=== PATIENT | male | born 1950 | race Caucasian/White ===

== ENCOUNTER 2020-08-13 08:47 | Outpatient (CLI) | payer MEDICARE, SELFPAY ==
--- NOTE | 2020-08-13 10:01 | ECG_ITS ---
Measurements Intervals [place] Rate: 75 P: 69 MD: 194 QRS: 17 QRSD: 92 T: 61 QT: 365 QTc: 408 Interpretive Statements SINUS RHYTHM VENTRICULAR PREMATURE COMPLEX DELAYED PRECORDIAL R/S TRANSITION BASELINE ARTIFACT- I, III, AVR, AVL, AVF BORDERLINE ECG Electronically Signed On 08-13-2020 10:22:45 SPRINKLING SYSTEM IRRIGATOR by Sriram Epstein D.O.
[2020-08-13 10:47] LABS: Basophils Absolute Auto 0.1 K/mm3 (0.0-0.1); Eosinophils Absolute Auto 0.2 K/mm3 (0-0.3); Eosinophils Percent Auto 2.2 % (0-4.4); Hematocrit 49.4 % (42.0-52.0); Immature Granulocyte Absolute 0.05 K/mm3 (0.00-0.031); Immature Granulocyte Percent A 0.4 % (0-0.5); Lymphocytes Absolute Auto 3.29 K/mm3 (0.9-3.2); Lymphocytes Percent Auto 29.5 % (18.3-44.2); Mean Corpuscular HGB Conc 32.4 g/dl (32-36); Mean Corpuscular Hemoglobin 29.9 pg (26-34); Mean Corpuscular Volume 92.3 fl (80-100); Mean Platelet Volume 9.9 fl (7.4-10.4); Monocytes Absolute Auto 0.9 K/mm3 (0.1-0.6); Monocytes Percent Auto 8.1 % (2.6-8.5); Neutrophils Absolute Auto 6.6 K/mm3 (1.3-6.7); Neutrophils Percent Auto 58.8 % (45.5-73.1); Platelet Count Result 373 k/mm3 (150-375); Red Blood Count 5.35 M/mm3 (4.6-6.20); Red Cell Distribution Width 13.1 % (11.5-14.5); White Blood Count 11.2 K/mm3 (4.5-10.0)
[2020-08-13 10:49] LABS: Add Urine Microscopic? NO; Appearance Urine Clear (Clear); Bilirubin Urine Negative (Negative); Blood Urine Negative (Negative); Color Urine Yellow (Yellow); Glucose Urine UA Negative (Negative); Ketones Urine Negative (Negative); Leukocyte Esterase Ur Negative LEU/UL (Negative); Nitrate Urine Negative (Negative); Protein Urine Negative (Negative); Specific Grav Ur 1.017 (1.001-1.035); Urobilinogen Urine Negative mg/dL (<2.0)
[2020-08-13 10:56] LABS: INR 1.1; Partial Thromboplastin Time 33.4 SECONDS (22.3-36.8); Prothrombin Time 13.4 Seconds (11.1-14.7)
[2020-08-13 10:58] LABS: Anion Gap 9 mmol/L (8-16); Blood Urea Nitrogen 16 mg/dL (9-20); Calcium 9.2 mg/dL (8.4-10.2); Carbon Dioxide 28 mmol/L (22-30); Chloride 101 mmol/L (98-107); Estimated Glomerular Filt Rate 60; Glucose 128 mg/dL (75-110); Potassium 4.4 mmol/L (3.4-5.0); Sodium 138 mmol/L (137-145)
[2020-08-13 11:00] LABS: Urine Cotinine NEGATIVE
== END 2020-08-13 08:48 | disposition home or self-care (01) ==
PROVIDERS: PCP Family Medicine; Visit Provider Orthopaedic Surgery
DX: M17.11 Unilateral primary osteoarthritis, right knee (principal); Z01.818 Encounter for other preprocedural examination; R94.31 Abnormal electrocardiogram [ECG] [EKG]
CPT/HCPCS: 80048; 80307; 81003; 82040; 83036; 85025; 85610; 85730; 86850; 86900; 86901; 87081; 93005

== ENCOUNTER 2020-08-18 01:08 | Outpatient (CLI) | payer MEDICARE, SELFPAY ==
[2020-08-19 00:05] LABS: SARS-CoV-2 RNA PCR Negative
== END 2020-08-18 01:09 | disposition home or self-care (01) ==
LOC: ANHCOVIDDT 01:08
PROVIDERS: PCP Family Medicine; Visit Provider Orthopaedic Surgery
DX: Z01.818 Encounter for other preprocedural examination (principal); Z20.828 Contact with and (suspected) exposure to other viral communicable diseases
CPT/HCPCS: 87635; C9803; U0003

== ENCOUNTER 2020-11-30 11:23 | Outpatient (CLI) | payer MEDICARE, SELFPAY ==
[2020-11-30 13:10] LABS: Basophils Absolute Auto 0.1 K/mm3 (0.0-0.1); Eosinophils Absolute Auto 0.2 K/mm3 (0-0.3); Eosinophils Percent Auto 1.7 % (0-4.4); Hematocrit 51.6 % (42.0-52.0); Immature Granulocyte Absolute 0.03 K/mm3 (0.00-0.031); Immature Granulocyte Percent A 0.3 % (0-0.5); Lymphocytes Absolute Auto 2.78 K/mm3 (0.9-3.2); Lymphocytes Percent Auto 25.5 % (18.3-44.2); Mean Corpuscular HGB Conc 32.9 g/dl (32-36); Mean Corpuscular Volume 91.2 fl (80-100); Mean Platelet Volume 9.8 fl (7.4-10.4); Monocytes Absolute Auto 0.9 K/mm3 (0.1-0.6); Monocytes Percent Auto 7.9 % (2.6-8.5); Neutrophils Absolute Auto 6.9 K/mm3 (1.3-6.7); Neutrophils Percent Auto 63.6 % (45.5-73.1); Platelet Count Result 376 k/mm3 (150-375); Red Blood Count 5.66 M/mm3 (4.6-6.20); Red Cell Distribution Width 13.2 % (11.5-14.5); White Blood Count 10.9 K/mm3 (4.5-10.0)
[2020-11-30 13:16] LABS: Add Urine Microscopic? YES; Appearance Urine Clear (Clear); Bilirubin Urine Negative (Negative); Blood Urine Negative (Negative); Color Urine Yellow (Yellow); Glucose Urine UA Negative (Negative); Ketones Urine Negative (Negative); Leukocyte Esterase Ur Negative LEU/UL (Negative); Mucus Urine Rare /lpf; Nitrate Urine Negative (Negative); Protein Urine 1+ mg/dL (Negative); RBC Urine 0-2 /hpf (0-2); Specific Grav Ur 1.019 (1.001-1.035); Squamous Epithelial Cell Urine Rare /hpf (Few); Urobilinogen Urine Negative mg/dL (<2.0); WBC Urine 0-3 /hpf
[2020-11-30 13:18] LABS: Prothrombin Time 13.4 Seconds (11.1-14.7)
[2020-11-30 13:20] LABS: Urine Cotinine NEGATIVE
[2020-11-30 13:21] LABS: Albumin Level 4.2 g/dL (3.5-5.1); Anion Gap 7 mmol/L (8-16); Blood Urea Nitrogen 19 mg/dL (9-20); Calcium 9.7 mg/dL (8.4-10.2); Carbon Dioxide 28 mmol/L (22-30); Chloride 101 mmol/L (98-107); Estimated Glomerular Filt Rate 50; Glucose 129 mg/dL (75-110); Potassium 4.6 mmol/L (3.4-5.0); Sodium 136 mmol/L (137-145)
[2020-11-30 13:29] LABS: Hemoglobin A1C 6.3 % (<5.7)
== END 2020-11-30 11:24 | disposition home or self-care (01) ==
LOC: ANHSURGERY 11:29
PROVIDERS: PCP Family Medicine; Visit Provider Orthopaedic Surgery
DX: M17.11 Unilateral primary osteoarthritis, right knee (principal); Z01.818 Encounter for other preprocedural examination
CPT/HCPCS: 80048; 80307; 81001; 82040; 83036; 85025; 85610; 85730; 86850; 86900; 86901; 87081

== ENCOUNTER → 2020-12-01 05:54 | Outpatient (CLI) | payer MEDICARE, SELFPAY ==
[2020-12-01 19:10] LABS: SARS-CoV-2 RNA PCR Negative
== END ==
PROVIDERS: PCP Family Medicine; Visit Provider Orthopaedic Surgery
DX: Z01.812 Encounter for preprocedural laboratory examination (principal); Z20.822 Contact with and (suspected) exposure to COVID-19
CPT/HCPCS: C9803; U0003; U0005

== ENCOUNTER 2020-12-04 00:36 | Day surgery (SDC) | payer MEDICARE, SELFPAY ==
[2020-08-13 09:14] VITALS: BMI 38.7
[2020-08-13 09:16] VITALS: BP 176/97; PULSE 83; RESP 18; TEMP 36.8; O2SAT 95
[2020-11-30 11:48] VITALS: BP 147/92; PULSE 97; RESP 18; TEMP 36.8; O2SAT 99; BMI 38.7
--- NOTE | 2020-12-03 09:40 | WPDANESEPPF ---
Anes - Initial Pre Proc Eval Procedure: Operation Date: 12/04/20 07:30 Proposed Procedures p Right Total Knee Arthroplasty - Moreno Dunham MD Date/Time: 12/03/20 09:40 Surgeon: Moreno Dunham MD Pre Op Diagnosis: right knee DJD Patient Data Age: 70 Gender: M Height: 1.85 m Weight: 133.4 kg Last Vital Signs Temp 36.8 C 11/30/20 11:48 Pulse 97 11/30/20 11:48 Resp 18 11/30/20 11:48 BP 147/92 H 11/30/20 11:48 Pulse Ox 99 11/30/20 11:48 Allergies Allergy/AdvReac Type Severity Reaction Status Date / Time blueberry Allergy BURNING Verified 12/04/20 06:04 gluten Allergy Gastrointestinal Verified 12/04/20 06:04 Upset strawberry Allergy BURNING Verified 12/04/20 06:04 Yeast AdvReac BODY ACHES Verified 12/04/20 06:04 Home Medications Medication Instructions Recorded Confirmed Type chlorhexidine gluconate 4 % 1 applic TOPICAL ONCE #237 ml 07/09/20 12/04/20 Rx topical liquid acetaminophen [Tylenol Extra 1,000 mg PO Q6H PRN 08/13/20 12/04/20 History Strength] alprazolam 0.5 mg PO TID PRN 08/13/20 12/04/20 History cetirizine 10 mg PO DAILY PRN 08/13/20 12/04/20 History cyanocobalamin (vitamin B-12) 1,000 mcg PO DAILY 08/13/20 12/04/20 History [Vitamin B-12] cholecalciferol (vitamin D3) 25 mcg PO DAILY 11/30/20 12/04/20 History [Vitamin D3] omega-3 fatty acids-vitamin E 1 cap PO DAILY 11/30/20 12/04/20 History [Fish Oil] Patient hx anesthesia problems: none Family hx anesthesia problems: none PMFSH Past Medical History Medical History (Updated 12/03/20 @ 09:40 by Davy Demarco DO) Anxiety DJD (degenerative joint disease) of knee GERD (gastroesophageal reflux disease) High cholesterol Tricompartment degenerative joint disease of knee Vision abnormalities Family History Family History Father Family history of arthritis Social History Social History Smoking status: Former smoker Tobacco type: cigars Smoking end date: 04/11/00 Additional smoking assessment comments: 1-2 CIGARS/WEEK Alcohol intake: current Drinks per week: 1 Alcohol use details: DRANK HEAVILY FOR SEVERAL YEARS AFTER SON Substance use: never Living arrangements: with family Additional living arrangements comments: Spiritual care concerns: No Anes - Eval Final PreProcedure Day of Procedure 12/03/20 09:40 Patient weight: obese Heart: regular rate and rhythm Lungs: clear to auscultation and normal air movement Airway: Mallampati scale class II Neurological: alert and oriented Last oral intake: >/= 8 hours ASA classification: III Emergent: no Anesthetic plan: proceed Anesthesia type and monitoring: general LMA and standard monitoring Informed Consent: The patient's anesthetic plan and its attendant risks and benefits were discussed with the patient/family/POA. Questions were solicited and answers provided to the satisfaction of the patient/family/POA.
--- NOTE | 2020-12-03 09:41 | WPDANESPNB ---
Anes - Peripheral Nerve Block Date/Time: 12/03/20 09:41 I have discussed with the patient/family/POA the placement of a peripheral nerve block for post-operative pain management, including associated risks, benefits, complications, and side effects. Alternative methods of post-operative analgesia were detailed. Questions were solicited and answers provided to the satisfaction of the patient/family/POA. Time-Out: A pre-procedural Time-Out was completed immediately before starting the procedure and confirmed: Patient Identification, Site, Procedure, Patient Position and the Availability of Requisite Equipment. Clinical Indications: Acute post-operative pain management requested by the operative surgeon. Nerve Block Insertion Note Anes-nerve block: adductor canal right Patient position: supine Skin prep: chlorhexidine Needle: 22 gauge, stimulating, insulated echogenic needle. Needle length: 80 mm Technique: ultrasound Injectate: bupivacaine 0.5% with epi 5 mcg/ml (30cc - no epi) Observations: tolerated well Complications: none Procedure start time:: 729 Procedure end time:: 732
[2020-12-04] VITALS (17 sets, daily range): BP systolic 116–161; BP diastolic 71–95; PULSE 65–99; RESP 10–20; TEMP 36.1–36.8; O2SAT 91–100; BMI 38.0
--- NOTE | ~2020-12-04 | XR_ITS ---
XR knee RT 2V DATE: 12/04/2020 10:34 INDICATION: Right total knee arthroplasty TECHNIQUE: Postoperative AP and crosstable lateral views COMPARISON: November 30, 2020 right knee FINDINGS: Status post right knee arthroplasty without patellar resurfacing. There is expected postoperative subcutaneous and intra-articular gas. There are peyman along the ant erior aspect of the knee. No fracture, dislocation, periosteal reaction or bone destruction. IMPRESSION: Right knee arthroplasty Reviewed, dictated and finalized at location A. MICS ENGINEER IMPRESSION: Right knee arthroplasty
[2020-12-04] MEDS: LACTATED RINGERS 1,000 ML 30 ML IV CONT ×2 (06:30→10:02)
[2020-12-04] MEDS: TRANEXAMIC ACID 1,000MG/ISO100 1,000 MG/100 ML BAG 200 MG IVPB (06:31)
[2020-12-04] MEDS: ACETAMINOPHEN 500 MG TABLET 1000 MG PO (06:32)
--- NOTE | 2020-12-04 07:12 | SUR.PREOP ---
0605; UPON ARRIVAL INTO PREOP. PT VISIBLY WINDED FROM WALK TO PREOP. C/O HEARTBURN. PT BELCHING. STATES FEELS BETTER. SAO2 91% 0630; PT STATES RELIEF OF HEARTBURN, NO LONGER SOB 0655; DR TORRE NOTIFIED OF HEARTBURN, AND LOW SAO2.
[2020-12-04] MEDS: FAMOTIDINE 20 MG/2 ML VIAL IV PUSH (07:17)
--- NOTE | 2020-12-04 07:22 | WPDHPUPDATE1 ---
History and Physical Update Update Date/Time: 12/04/20 07:22 History and Physical has been reviewed, including an updated exam of the patient. There are NO changes in the patient's condition. Risks, benefits, and alternatives have been discussed and questions answered. Patient agrees to proceed with procedure.
[2020-12-04] MEDS: ceFAZolin 3 GM/D5W 100 ML 100 ML IVPB (07:38)
[2020-12-04] MEDS: GENTAMICIN BONE CEMENT REFOBACIN 1 EACH TOPICAL (08:36)
[2020-12-04] MEDS: TRANEXAMIC ACID 1,000 MG/10 ML AMPUL 10 MG IV PUSH (09:28)
--- NOTE | 2020-12-04 09:42 | PM.PROC ---
Procedure Note - Detailed Date of procedure: 12/04/20 Pre-op diagnosis: right knee DJD Post-op diagnosis: same Procedure performed: R TKA Description of procedure: THE RIGHT KNEE WAS PREPPED AND DRAPED IN THE STERILE FASHION. A MIDLINE SKIN INCISION WAS MADE. A MEDIAL PARAPATELLAR ARTHROTOMY WAS MADE. THE PATELLA WAS EVERTED. THERE WAS TRICOMPARTMENT DJD. THERE WAS MINIMAL PATELLA DJD. AN INTRAMEDULLARY MAURICE WAS PLACED IN THE FEMUR. A DISTAL FEMORAL CUT WAS MADE IN 5 DEGREES OF VALGUS REMOVING APPROXIMATELY 9 MM OF BONE FROM THE DISTAL FEMUR. THE FEMUR WAS SIZED TO 72.5. A 72.5 FEMORAL CUTTING BLOCK WAS PLACED IN 3 DEGREES OF EXTERNAL ROTATION AND IN ALIGNMENT WITH ELSI'S LINE AND THE TRANSEPICONDYLAR AXIS. ANTERIOR POSTERIOR AND CHAMFER CUTS WERE MADE. THE CUTS WERE EXCELLENT. NEXT AN INTRAMEDULLARY CUTTING GUIDE WAS PLACED IN THE TIBIA. A TRANS TIBIAL CUT WAS MADE ALONG THE LONG AXIS OF THE TIBIA. APPROXIMATELY 10 MM OF BONE WAS REMOVED FROM THE HIGH SIDE OF THE TIBIA. THE TIBIA WAS THEN PLANED TO A SMOOTH SURFACE. POSTERIOR FEMORAL OSTEOPHYTES WERE REMOVED FROM THE FEMORAL CONDYLES. An 83 TIBIAL TRIAL WAS PLACED IN ALIGNMENT WITH THE 1/3 MEDIAL ASPECT OF THE TIBIAL TUBERCLE. THEN A 72.5 FEMORAL TRIAL COMPONENT WAS PLACED. BOTH HAD EXCELLENT FITS. EVENTUALLY A 10 MM POLYETHYLENE TRIAL COMPONENT WAS PLACED. THE KNEE WAS TAKEN THROUGH A RANGE OF MOTION. THE KNEE CAME OUT TO FULL EXTENSION. THERE WAS NO ABNORMAL TILT TO THE PATELLA. THERE WAS GOOD A/P AND VARUS/VALGUS STABILITY. THERE WAS NO EXCESSIVE ROLL BACK WITH FLEXION. THE TRIAL COMPONENTS WERE REMOVED. THEN A 72.5 FEMORAL COMPONENT AND 83 TIBIAL COMPONENT WITH A 10 CR POLYETHYLENE COMPONENT WERE PRESS FIT INTO PLACE. THE IMPLANTS WERE FLUSH WITH THE CUT BONE SURFACES. THE KNEE WAS TAKEN THROUGH A ROM AGAIN AND FOUND TO BE STABLE WITH NO PATELLA TILT NO EXCESSIVE ROLL BACK WITH FLEXION AND GOOD STABILITY WITH COMPLETE AND FULL EXTENSION. THE KNEE WAS IRRIGATED WITH STERILE BETADINE AND WATER FOR ABOUT 3 MINUTES. THE BLEEDERS WERE CAUTERIZED. THE ARTHROTOMY WAS REPAIRED WITH NUMBER 1 VICRYL. THE SUB CUTANEOUS LAYER WITH 2-0 VICRYL AND THE SKIN WITH TERRY. THE WOUND WAS WASHED AND A STERILE DRESSING WAS APPLIED. PATIENT WAS EXTUBATED. Anesthesia: GETA Surgeon: Moreno Dunham MD Estimated blood loss (mL): 100 Complications: No immediate complications Condition: stable Disposition: PACU
[2020-12-04] MEDS: fentaNYL CITRATE INJ (*CRX) 100 MCG/2 ML VIAL 25 MCG IV PUSH ×3 (10:29→11:20)
--- NOTE | 2020-12-04 10:43 | SUR.PHASEI ---
1043 - dr. chen at bedside talking with pt
--- NOTE | 2020-12-04 12:03 | ADMGEN ---
This patient, Dalton De La Torre, was admitted to Medical Room 259-. Patient/family oriented to hospital policies and general routines including ID bracelet, bed and alarms, visiting hours, pain management, procedures, bathroom and other care routines, personal items, smoking policy, room service/diet, and visiting hours. Information on how to activate the Rapid Response Team has been discussed. Patient/Family are encouraged to report perceived risks to care and to ask questions if they do not understand what they are told or what they should do.
[2020-12-04] MEDS: SODIUM CHLORIDE 0.9% IV 1,000 ML 125 ML IV CONT (12:25)
[2020-12-04] MEDS: oxyCODONE HCL (*CRX) 5 MG TAB IR PO ×3 (12:25→21:28)
[2020-12-04] MEDS: OMEGA 3 POLYUNSAT FATTY ACIDS 1 GM CAP PO (14:33)
[2020-12-04] MEDS: CHOLECALCIFEROL 1,000 UNITS TABLET 1000 UNITS PO (14:33)
[2020-12-04] MEDS: ceFAZolin 2 GM/D5W 50 ML 2 GM/50 ML BAG IVPB ×2 (14:59→23:57)
[2020-12-04] MEDS: CELECOXIB 200 MG CAPSULE PO (18:06)
[2020-12-04] MEDS: DOCUSATE SODIUM 100 MG CAPSULE PO (18:06)
[2020-12-04] MEDS: ONDANSETRON INJ 4 MG/2 ML VIAL IV PUSH (20:27)
[2020-12-04] MEDS: FAMOTIDINE 20 MG TABLET PO (21:29)
[2020-12-05] MEDS: ALPRAZolam (*CRX) 0.5 MG TABLET PO
[2020-12-05] MEDS: oxyCODONE HCL (*CRX) 5 MG TAB IR PO ×3 (00:38→08:31)
[2020-12-05 02:00] VITALS: BP 153/70; PULSE 85; RESP 16; TEMP 36.4; O2SAT 95
[2020-12-05 06:00] VITALS: BP 156/80; PULSE 84; RESP 16; TEMP 36.7; O2SAT 99
[2020-12-05] MEDS: ceFAZolin 2 GM/D5W 50 ML 2 GM/50 ML BAG IVPB (06:22)
[2020-12-05 06:54] LABS: Basophils Absolute Auto 0.1 K/mm3 (0.0-0.1); Basophils Percent Auto 0.3 % (0.2-1.2); Eosinophils Percent Auto 0.2 % (0-4.4); Hematocrit 40.6 % (42.0-52.0); Hemoglobin 13.1 g/dL (14.0-18.0); Immature Granulocyte Absolute 0.07 K/mm3 (0.00-0.031); Immature Granulocyte Percent A 0.5 % (0-0.5); Lymphocytes Absolute Auto 2.37 K/mm3 (0.9-3.2); Lymphocytes Percent Auto 16.4 % (18.3-44.2); Mean Corpuscular HGB Conc 32.3 g/dl (32-36); Mean Corpuscular Hemoglobin 30.3 pg (26-34); Mean Corpuscular Volume 93.8 fl (80-100); Mean Platelet Volume 10.1 fl (7.4-10.4); Monocytes Absolute Auto 1.8 K/mm3 (0.1-0.6); Monocytes Percent Auto 12.4 % (2.6-8.5); Neutrophils Absolute Auto 10.1 K/mm3 (1.3-6.7); Neutrophils Percent Auto 70.2 % (45.5-73.1); Platelet Count Result 327 k/mm3 (150-375); Red Blood Count 4.33 M/mm3 (4.6-6.20); Red Cell Distribution Width 13.2 % (11.5-14.5); White Blood Count 14.5 K/mm3 (4.5-10.0)
[2020-12-05 07:12] LABS: Anion Gap 4 mmol/L (8-16); Blood Urea Nitrogen 14 mg/dL (9-20); Calcium 8.1 mg/dL (8.4-10.2); Carbon Dioxide 29 mmol/L (22-30); Chloride 101 mmol/L (98-107); Estimated CRCL calculation 63 ml/min; Estimated Glomerular Filt Rate 50; Glucose 142 mg/dL (75-110); Potassium 4.5 mmol/L (3.4-5.0); Sodium 134 mmol/L (137-145)
--- NOTE | 2020-12-05 08:02 | P.PNAN_ITS ---
Anes - Prog Note Post-Op Date/Time: 12/05/20 08:02 Cardiovascular status: normal Respiratory status: normal Airway patency: baseline Mental status: baseline Post-Op hydration status: normal Vital Signs: Last Vital Signs Temp 36.5 C 12/04/20 22:00 Pulse 80 12/04/20 22:00 Resp 18 12/04/20 22:00 BP 161/75 H 12/04/20 22:00 Pulse Ox 98 12/04/20 22:00 Pain Score (VAS): 3 I/O: Intake & Output 12/04/20 12/05/20 12/05/20 23:59 07:59 15:59 Intake Total 894 100 Output Total 400 Balance 494 100 Laboratory Tests 12/05/20 05:17 12/05/20 05:17 12/05/20 12/05/20 05:17 05:17 WBC 14.5 H RBC 4.33 L Hgb 13.1 L D Hct 40.6 L MCV 93.8 MCH 30.3 MCHC 32.3 RDW 13.2 Plt Count 327 MPV 10.1 Immature Gran % (Auto) 0.5 Neut % (Auto) 70.2 Lymph % (Auto) 16.4 L [place] % (Auto) 12.4 H Eos % (Auto) 0.2 Baso % (Auto) 0.3 Lymph # (Auto) 2.37 [place] # (Auto) 1.8 H Eos # (Auto) 0.0 Baso # (Auto) 0.1 Abs Immat Gran (auto) 0.07 H Absolute Neuts (auto) 10.1 H Absolute Nucleated RBC 0.0 Nucleated RBC % 0.0 Sodium 134 L Potassium 4.5 Chloride 101 Carbon Dioxide 29 Anion Gap 4 L BUN 14 D Creatinine 1.40 H Estim Creat Clear Calc 63 Estimated GFR 50 L Glucose 142 H Calcium 8.1 L Post-procedural complaints: none Patient Feedback: Patient satisfied with anesthetic care.
[2020-12-05] MEDS: CYANOCOBALAMIN 1,000 MCG TABLET 1000 MCG PO (08:31)
[2020-12-05] MEDS: ASPIRIN 325 MG ENTERIC TABLET 650 MG PO (08:31)
[2020-12-05] MEDS: FAMOTIDINE 20 MG TABLET PO (08:32)
[2020-12-05] MEDS: DOCUSATE SODIUM 100 MG CAPSULE PO ×2 (08:32→16:11)
[2020-12-05] MEDS: CELECOXIB 200 MG CAPSULE PO ×2 (08:32→16:11)
[2020-12-05] MEDS: CHOLECALCIFEROL 1,000 UNITS TABLET 1000 UNITS PO (08:32)
[2020-12-05 10:01] VITALS: BP 94/67; PULSE 89; RESP 16; TEMP 36.6; O2SAT 96
[2020-12-05 11:00] VITALS: BP 147/72; PULSE 79; RESP 20; TEMP 36.7; O2SAT 97
[2020-12-05 13:54] VITALS: BP 134/60; PULSE 84; RESP 16; TEMP 36.7; O2SAT 96
[2020-12-05] MEDS: ACETAMINOPHEN 500 MG TABLET 1000 MG PO (14:23)
--- NOTE | 2020-12-05 14:45 | PC.NURSE ---
On 12/05/20, the student, [Kalyani Reyna ], provided care and completed [facility] documentation on this patient. I have reviewed the student's documentation and agree with the findings.
--- NOTE | 2020-12-05 16:30 | PM.PNORT ---
Progress Note: A&P Additional Plan POD 1 DOING WELL WITH STABLE HGB AND PASSING PT. RECOMMEND DC HOME WITH PT AND NURSING AND F/U IN 3 WEEKS. Subjective Subjective Date/Time Seen: 12/05/20 16:30 Post Op day: 1 Interval history: POD 1 LDOING WELL NO CALF PAIN, NO SOB OR CP Review of Systems Review of Systems: All systems reviewed & are unremarkable except as noted in HPI and below Exam Extrem: Other: VSS AFEBRILE DRESSING DRY NV INTACT NEG HOMANS SIGN, CALF SOFT NON TENDER Objective Data Vital Signs Vital Signs: Vital Signs - 24 hr 12/04/20 18:00 12/04/20 20:00 12/04/20 22:00 Temperature 36.3 C L 36.5 C Pulse Rate 89 80 80 Respiratory Rate 16 18 18 Blood Pressure 152/83 H 161/75 H Pulse Oximetry 96 98 98 12/05/20 02:00 12/05/20 06:00 12/05/20 10:01 Temperature 36.4 C 36.7 C 36.6 C Pulse Rate 85 84 89 Respiratory Rate 16 16 16 Blood Pressure 153/70 H 156/80 H 94/67 L Pulse Oximetry 95 99 96 12/05/20 11:00 12/05/20 13:54 Temperature 36.7 C 36.7 C Pulse Rate 79 84 Respiratory Rate 20 16 Blood Pressure 147/72 H 134/60 Pulse Oximetry 97 96 Intake/Output Intake/Output: Intake & Output 12/02/20 12/03/20 12/04/20 12/05/20 23:59 23:59 23:59 23:59 Intake Total 1144 860 Output Total 400 1400 Balance 744 -540 Meds/Results Medications: Active Medications Generic Name Dose Route Start Last Admin Trade Name Freq PRN Reason Stop Dose Admin Acetaminophen 1,000 mg 12/04/20 11:52 12/05/20 14:23 Acetaminophen 500 Mg Tablet PO 1,000 mg Q6H PRN Administration Mild Pain (1-3) Alprazolam 0.5 mg 12/04/20 11:52 12/05/20 00:00 Alprazolam (*Crx) 0.5 Mg Tablet PO 0.5 mg TID PRN Administration Anxiety Aspirin 650 mg 12/05/20 09:00 12/05/20 08:31 Aspirin 325 Mg Enteric Tablet PO 650 mg DAILY TIMUR Administration Celecoxib 200 mg 02/23/21 17:00 12/05/20 16:11 Celecoxib 200 Mg Capsule PO 200 mg BIDWM TIMUR Administration Cyanocobalamin 1,000 mcg 12/05/20 09:00 12/05/20 08:31 Cyanocobalamin 1,000 Mcg Tablet PO 1,000 mcg DAILY TIMUR Administration Diazepam 5 mg 12/04/20 11:52 Diazepam (*Crx) 5 Mg Tablet PO Q8H PRN Spasms Diphenhydramine HCl 25 mg 12/04/20 11:52 Diphenhydramine Hcl Inj 50 Mg/Ml Vial IV PUSH Q6H PRN Itching Docusate Sodium 100 mg 12/04/20 17:00 12/05/20 16:11 Docusate Sodium 100 Mg Capsule PO 100 mg BID TIMUR Administration Famotidine 20 mg 12/04/20 21:00 12/05/20 08:32 Famotidine 20 Mg Tablet PO 20 mg Q12HR TIMUR Administration Fish Oil 1 gm 12/04/20 09:00 12/05/20 08:36 [place] 3 Polyunsat Fatty Acids 1 Gm Cap PO 01/04/21 09:01 Not Given DAILY [facility] Loratadine 10 mg 12/04/20 11:52 Loratadine 10 Mg Tablet PO DAILY PRN Allergic Symptoms Morphine Sulfate 2 mg 12/04/20 10:03 Morphine Sulfate (*Crx) 2 Mg/Ml Inj IV PUSH Q4H PRN Pain Rated 7-10 Naloxone HCl 0.1 mg 12/04/20 11:52 Naloxone Hcl 0.4 Mg/Ml Vial IV PUSH Q2M PRN Opiate Reversal Ondansetron HCl 4 mg 12/04/20 11:52 12/04/20 20:27 Ondansetron Inj 4 Mg/2 Ml Vial IV PUSH 4 mg Q4H PRN Administration Nausea And Vomiting Oxycodone HCl 5 mg 12/04/20 13:00 12/05/20 16:11 Oxycodone Hcl (*Crx) 5 Mg Tab Ir PO Not Given Q4HR [facility] Oxycodone/Acetaminophen 1 tablet 12/04/20 11:52 Oxycodone/Acetaminophen (*Crx) 5-325 Mg Tablet PO Q4H PRN Pain Rated 4-6 Vitamin D 1,000 units 12/04/20 09:00 12/05/20 08:32 Cholecalciferol 1,000 Units Tablet PO 1,000 units DAILY TIMUR Administration Radiology Results: ITS Impressions Knee X-Ray 12/04/20 10:40 IMPRESSION: Right knee arthroplasty Labs Labs: Laboratory Results - last 24 hr 12/05/20 12/05/20 05:17 05:17 WBC 14.5 H RBC 4.33 L Hgb 13.1 L D Hct 40.6 L MCV 93.8 MCH 30.3 MCHC 32.3 RDW 13.2 Plt Count 327 MPV 10.1 Immature Gran %
--- NOTE | 2020-12-05 16:35 | PM.DS ---
DS: Admitting Diagnosis Admitting Diagnosis Admitting Diagnosis: R KNEE DJD DS: Summary Hospital Course Reason for hospitalization: R TKA Hospital Course: PATIENT DID WELL AFTER R TKA. HE REMANINED STABLE AND PASSED PT AND WAS FIT TO BE DISCHARGED HOME ON POD 1 Status at Discharge Functional status at discharge: uses cane/walker Overall status at discharge: patient is back to baseline Time Spent with Patient Time attestation: Total time spent providing and/or coordinating discharge services: Time spent: Less than 30 minutes DS: Data Data Completed and Pending Labs on day of discharge: Labs from last 24 hours 12/05/20 12/05/20 05:17 05:17 WBC 14.5 H RBC 4.33 L Hgb 13.1 L D Hct 40.6 L MCV 93.8 MCH 30.3 MCHC 32.3 RDW 13.2 Plt Count 327 MPV 10.1 Immature Gran % (Auto) 0.5 Neut % (Auto) 70.2 Lymph % (Auto) 16.4 L [place] % (Auto) 12.4 H Eos % (Auto) 0.2 Baso % (Auto) 0.3 Lymph # (Auto) 2.37 [place] # (Auto) 1.8 H Eos # (Auto) 0.0 Baso # (Auto) 0.1 Abs Immat Gran (auto) 0.07 H Absolute Neuts (auto) 10.1 H Absolute Nucleated RBC 0.0 Nucleated RBC % 0.0 Sodium 134 L Potassium 4.5 Chloride 101 Carbon Dioxide 29 Anion Gap 4 L BUN 14 D Creatinine 1.40 H Estim Creat Clear Calc 63 Estimated GFR 50 L Glucose 142 H Calcium 8.1 L Discharge Plan Discharge Patient Disposition: Home Health Service Discharge Instructions: Per Care Coordination: Notify [facility] [phone] at discharge. Fax discharge instructions to [phone]. Dr. Moreno Dunham [phone] Orthopedic Discharge Instructions: Your dressing will be changed today prior to your discharge. You will be sent with one additional dressing to be changed by the home health RN in 5 days. Your peyman will be removed on the 14th day after surgery. You may shower but DO NOT submerge in a bath tub until released by Dr. Dunham. Please walk with a walker at all times until released by Dr. Dunham. Do not drive until released by Dr. Dunham. Continue use of your ice machine. Protect your skin with a sheet/towel prior to applying ice machine. Your medications have been called into your pharmacy. Follow up as previously scheduled, your appointment is also indicated in these instructions. Contact our office with any questions or concerns at [phone]. Patient Instructions: Antibiotic Form Stand Alone Forms: General Discharge Information Follow-up/Referrals: Moreno Dunham MD [Physician] - 12/24/20 10:00 am Discharge Medications: New oxycodone-acetaminophen [Percocet] 7.5-325 mg tablet 1 tablet PO Q6H PRN (Reason: pain) Qty: 60 RF: 0 Continued alprazolam 0.5 mg tablet 0.5 mg PO TID PRN (Reason: Anxiety) RF: 0 cyanocobalamin (vitamin B-12) [Vitamin B-12] 1,000 mcg Tablet 1,000 mcg PO DAILY RF: 0 acetaminophen 500 mg Capsule 1,000 mg PO Q6H PRN (Reason: Pain) RF: 0 cetirizine 10 mg Capsule 10 mg PO DAILY PRN (Reason: Allergic Symptoms) RF: 0 cholecalciferol (vitamin D3) [Vitamin D3] 25 mcg (1,000 unit) Capsule 25 mcg PO DAILY RF: 0 omega-3 fatty acids-vitamin E 1,000 mg Capsule 1 cap PO DAILY RF: 0 Quality VTE Prophylaxis VTE prophylaxis: mechanical ordered and pharmacologic ordered
== END 2020-12-05 17:27 | disposition home health service (06) ==
LOC: ANHSURGERY 05:43 → ANH2MED 11:53
PROVIDERS: PCP Family Medicine; Visit Provider Orthopaedic Surgery
PROC: (CPT 27447; principal; 2020-12-04 07:30)
DX: M17.11 Unilateral primary osteoarthritis, right knee (principal); G89.18 Other acute postprocedural pain; E78.00 Pure hypercholesterolemia, unspecified; K21.9 Gastro-esophageal reflux disease without esophagitis; F41.9 Anxiety disorder, unspecified; Z87.891 Personal history of nicotine dependence; E66.9 Obesity, unspecified; Z68.38 Body mass index [BMI] 38.0-38.9, adult
CPT/HCPCS: 27447; 64447; 36415; 73560; 80048; 80307; 81001; 82040; 83036; 85025; 85610; 85730; 86850; 86900; 86901; 87081; 97110; 97116; 97161; 97165; 97530; 97535; A9270; C1713; C1776; C9803; J0171; J0330; J0690; J1100; J2250; J2270; J2370; J2405; J2704; J2710; J2795; J3010; J3370; J7030; J7120; U0003; U0005

== ENCOUNTER → 2021-05-28 11:44 | Outpatient (CLI) | payer MEDICARE, SELFPAY ==
--- NOTE | ~2021-05-28 | US_ITS ---
EXAMINATION: US aorta [facility] scr[facility] DATE: 05/28/2021 12:12 CDT INDICATION: Abdominal aortic aneurysm TECHNIQUE: Grayscale, color Doppler, and pulsed Doppler images of the aorta and common iliac arteries were obtained. COMPARISON: None. FINDINGS: The proximal aorta measures 2.3 cm greatest sagittal dimension. The mid aorta measures 2 cm greatest sagittal dimension. The distal aorta measures 1.8 cm greatest sagittal dimension. The right common in ternal iliac artery measures 1 cm. The left common iliac artery measures 0.9 cm. IMPRESSION: 1. Unremarkable ultrasound of the abdominal aorta. No aneurysm. Reviewed, dictated and finalized at location A.
--- NOTE | ~2021-05-28 | XR_ITS ---
EXAMINATION: XR chest 2V 05/28/2021 12:51 INDICATION: Chronic cough PROCEDURE: 2 view chest COMPARISON: No prior studies for comparison. FINDINGS: The lungs are clear. The cardiomediastinal silhouette is within normal limits. There are no pleural effusions. There is no pneumothorax suspected. Mild dextrocurvature of the thoracic spin e. IMPRESSION: 1: NO ACUTE CARDIOPULMONARY DISEASE. Reviewed, dictated and finalized at location A.
== END ==
PROVIDERS: PCP Family Medicine; Visit Provider Nurse Practitioner Family
DX: Z13.6 Encounter for screening for cardiovascular disorders (principal); R05 Cough
CPT/HCPCS: 71046; 76706